=== PATIENT | female | born 1965 | race Caucasian/White ===

== ENCOUNTER 2021-04-20 08:47 | Day surgery (SDC) | payer MEDICAID ==
[~2021-04-20] VITALS: Ht 152.4 cm; Wt 64.0 kg
[2021-04-20 09:10] VITALS: BP 156/93
[2021-04-20] MEDS ORDERED: NICO-732 TOP (09:12)
[2021-04-20] MEDS ORDERED: CHOL500049 PO (09:12)
[2021-04-20] MEDS ORDERED: LURA40TA2 PO (09:12)
[2021-04-20] MEDS ORDERED: normal saline 1000ml 1,000 ML IV SCH (09:15)
[2021-04-20] MEDS ORDERED: normal saline 1000ml 1,000 ML IV PRN (09:15)
--- NOTE | 2021-04-20 10:00 | NUR ---
Pt to Interventional Radiology
[2021-04-20] MEDS ORDERED: midazolam 1 mg/ML 2ml injection ONE (10:03)
[2021-04-20] MEDS ORDERED: fentaNYL/PF 50MCG/1 ML 2ML syringe ONE (10:04)
[2021-04-20 10:30] VITALS: BP 143/89
[2021-04-20 10:35] VITALS: BP 152/102
--- NOTE | 2021-04-20 10:45 | NUR ---
Pt returned from Interventional Radiology. Procedure not done. Per RN report Dr. Edward stated her nodule has gotten smaller no need to biopsy it. Pt phoned ride and notified of procedure not being done and pt ready for DC in approx 10-15min.
[2021-04-20 10:46] VITALS: BP 164/98
--- NOTE | 2021-04-20 10:48 | NUR ---
PIV DC cath intact. Pt was given coffee, dominique without problems. Pt able to dress self, steady on feet.
--- NOTE | 2021-04-20 10:55 | NUR ---
Pt Amb to private car gait steady. DC home with friend.
== END 2021-04-20 10:55 | disposition home or self-care (01) ==
LOC: SSTAY O 08:47
PROVIDERS: ATTEND Radiology Vascular & Interventional Radiology
DX: R91.1 Solitary pulmonary nodule (principal); Z53.8 Procedure and treatment not carried out for other reasons; J45.909 Unspecified asthma, uncomplicated; F17.290 Nicotine dependence, other tobacco product, uncomplicated; Z98.51 Tubal ligation status; Z98.890 Other specified postprocedural states; Z79.899 Other long term (current) drug therapy; Z86.16 Personal history of COVID-19; Z87.01 Personal history of pneumonia (recurrent)
CPT/HCPCS: 71250; J2250; J3010